=== PATIENT | male | born 1960 | race Caucasian/White ===

== ENCOUNTER → 2020-05-13 07:13 | Outpatient (BNV) | payer MEDICARE, MEDICAID, SELFPAY | PROVIDERS: Visit Provider Internal Medicine | DX: Z85.038 Personal history of other malignant neoplasm of large intestine (principal) | CPT/HCPCS: 99213; 99214 ==

== ENCOUNTER 2020-05-20 07:59 | Outpatient (REF) | payer MEDICARE, MEDICAID, SELFPAY ==
--- NOTE | 2020-05-20 08:02 | CT_ITS ---
EXAMINATION: CT CHEST, ABDOMEN AND PELVIS WITH CONTRAST CLINICAL INFORMATION: Colon cancer surveillance COMPARISON: CT scan of the abdomen and pelvis dated 07/18/2018, chest CT dated 09/01/2015. TECHNIQUE: Multidetector volumetric imaging was performed of the chest, abdomen and pelvis following the IV administration of 85 mL of Omnipaque 350 intravenous contrast. Sagittal and coronal reformatted images were obtained on the technologist's workstation. This CT examination was performed using dose optimization techniques as appropriate, variously including the following: *Automated exposure control *Adjustment of mA and/or kV according to patient size (this includes techniques or standardized protocols for targeted exams where dose is matched to indication/reason for exam; i.e. extremities or head) DLP: 898.7 mGy-cm FINDINGS: CHEST: LUNGS/PLEURA/AIRWAYS: Subtle groundglass opacities are seen in the lower lung polo bilaterally. Mild dependent atelectasis is seen in the lower lobes as well. No suspicious pulmonary nodules are seen. There are no pleural effusions. The airways are patent. MEDIASTINUM: The thyroid gland is unremarkable. The thoracic aorta is of normal caliber. No significant coronary artery calcifications. No pericardial effusion. CHEST LYMPH NODES: No lymphadenopathy. SOFT TISSUES: ABDOMEN/PELVIS: LIVER, GALLBLADDER, AND BILIARY TREE: Unremarkable. PANCREAS: Unremarkable. SPLEEN: Unremarkable. ADRENAL GLANDS: Unremarkable. KIDNEYS AND URETERS: Unremarkable. BLADDER: Unremarkable. 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 Mild diverticulosis is seen in the sigmoid colon without surrounding abnormality. LYMPH NODES: No lymphadenopathy. VASCULAR: Unremarkable. PELVIC VISCERA: Unremarkable. MUSCULOSKELETAL: Unremarkable. SOFT TISSUES: Moderate sized fat-containing umbilical hernia without significant change. Small left periumbilical hernia measuring 2.5 cm was not seen previously (image 50, series 3). CT/CT abdomen pelvis w con IMPRESSION: 1. No evidence for residual or recurrent disease. 2. Subtle groundglass opacities in the lower lobes bilaterally are likely secondary to incomplete inspiration similar to the previous study. Mild dependent atelectasis is not significantly changed. 3. Persistent moderate size fat-containing umbilical hernia. Small fat-containing left superior periumbilical hernia was not seen previously.
[2020-05-20] MEDS: iohexoL 350 MG/ML 100 ML INFUS..BTL IV (11:50)
== END 2020-05-20 08:00 | disposition home or self-care (01) ==
LOC: HO.CT 07:59
PROVIDERS: Visit Provider Internal Medicine
DX: C18.9 Malignant neoplasm of colon, unspecified (principal)
CPT/HCPCS: 71260; 74177; Q9967

== ENCOUNTER → 2020-07-02 08:47 | Outpatient (BNVA) | payer MEDICARE, MEDICAID, SELFPAY | PROVIDERS: Visit Provider Internal Medicine Gastroenterology | DX: Z13.89 Encounter for screening for other disorder (principal) | CPT/HCPCS: 99212 ==

== ENCOUNTER 2020-07-30 06:21 | Day surgery (SDC) | payer MEDICARE, MEDICAID, SELFPAY ==
[2020-07-24 15:51] VITALS: BMI 39.7
--- NOTE | 2020-07-29 12:11 | HO.ANESPROP2 ---
Documented by User: Paola Morfin 07/29/20 12:12 HPI - Anesthesia Eval Consult details Narrative: 60yo M for Colonoscopy PMFSH Active Problems Active Problems: All Active Problems (Updated 07/24/20 @ 15:51 by Roxana Caba) Colon adenocarcinoma (Chronic) Past Medical History Medical History Colon cancer Depression Elevated cholesterol Hernia History of depression Obstructive sleep apnea Family History Family History Paternal Grandmother Colon cancer Maternal Grandmother Colon cancer Mother Cancer Paternal Aunt Colon cancer Surgical History Surgical History History of carpal tunnel release of both wrists History of colon resection History of facial surgery History of gastric bypass History of incisional hernia repair History of umbilical hernia repair Hx of colonoscopy Hx of tracheostomy Social History Social History Household Members: Children Alcohol intake: never Smoking Status: Never smoker Use of substances other than those prescribed or required for medical reasons: No Advance Directives: No Advance Directives Information Provided: No Advance Directives on File: No Recently lost weight without trying: No Current occupational status: disabled Meds Allergies Allergy/AdvReac Type Severity Reaction Status Date / Time No Known Allergies Allergy Unverified 07/24/20 15:42 [No Known Allergies*] Home Medications Medication Instructions Recorded Confirmed Last Taken Type ascorbic acid (vitamin C) [Vitamin mg PO 05/13/20 07/02/20 Unknown History C] bupropion HCl 150 mg PO DAILY 05/13/20 07/30/20 07/30/20 05:00 History 75 mg Exam Exam Date and Time: July 29, 2020 1211 Height,Weight and Vital Signs: Height 6 ft Weight 132.903 kg Pertinent Lab Results Pertinent Lab Results: Laboratory Tests 05/13/20 07:37 Sodium 138 Potassium 4.5 Chloride 106 Carbon Dioxide 27 BUN 18 H Creatinine 1.05 Laboratory Tests 05/13/20 07:37 WBC 4.6 L Hgb 15.0 Hct 45.7 Plt Count 251 Assessment and Plan Assessment Anesthesia Assessment: Chart Reviewed Documented by User: Ruben Benosn 07/30/20 07:20 PMFSH Past Medical History Medical History Colon cancer Depression Elevated cholesterol Hernia History of depression Obstructive sleep apnea Family History Family History Paternal Grandmother Colon cancer Maternal Grandmother Colon cancer Mother Cancer Paternal Aunt Colon cancer Surgical History Surgical History History of carpal tunnel release of both wrists History of colon resection History of facial surgery History of gastric bypass History of incisional hernia repair History of umbilical hernia repair Hx of colonoscopy Hx of tracheostomy Social History Social History Household Members: Children Alcohol intake: never Smoking Status: Never smoker Use of substances other than those prescribed or required for medical reasons: No Advance Directives: No Advance Directives Information Provided: No Advance Directives on File: No Recently lost weight without trying: No Current occupational status: disabled Meds Allergies Allergy/AdvReac Type Severity Reaction Status Date / Time No Known Allergies Allergy Unverified 07/24/20 15:42 [No Known Allergies*] Home Medications Medication Instructions Recorded Confirmed Last Taken Type ascorbic acid (vitamin C) [Vitamin mg PO 05/13/20 07/02/20 Unknown History C] bupropion HCl 150 mg PO DAILY 05/13/20 07/30/20 07/30/20 05:00 History 75 mg Exam Airway Mallampati Class: III TM Dist: >3cm Neck ROM: Full
[2020-07-30 06:47] VITALS: BP 116/67; PULSE 63; RESP 16; TEMP 36.1; O2SAT 96
[2020-07-30] MEDS: Lactated Ringers 1,000 ML 100 ML IVCONT (06:49)
--- NOTE | 2020-07-30 07:10 | W.PM.OPN ---
Operative Note Operative Note Date of Service: 07/30/20 Narrative: Pre-op diagnosis: Colon cancer screening, personal history of colon cancer Post-op diagnosis: other (Diverticulosis, hemorrhoids) Procedure: COLONOSCOPY TILL CECUM Consent: Indications for the procedure and potential complications of bleeding, perforation, reaction to medications and missed diagnosis were discussed with the patient with the help of a sheetfed press operator and informed consent was obtained. Instrument: Olympus PCF H 190 L variable stiffness pediatric colonoscope Monitoring: Vital signs and clinical assessment, intermittent blood pressure monitoring, continuous EKG monitoring, Pulse oximetry and Carbon Dioxide monitoring were done throughout the procedure. Colon withdrawl time was 25 minutes. Procedure: The patient was placed in the left lateral decubitis position and pre-procedure medications were administered. After a digital rectal examination of the ano-rectum, the video colonoscope was inserted into the rectum and advanced through the colon to the cecum. The colonoscope was slowly withdrawn in a retrograde panoramic fashion and the colon mucosa was carefully examined including a retroflexed view of the rectum. Findings and interventions are described below. Procedure Difficulty: Without difficulty Findings: Terminal Ileum: Not evaluated Cecum: Normal Ascending Colon: Normal Transverse Colon: Normal end to end anastomosis at 80 cms. Descending Colon: Normal Sigmoid Colon: Moderate diverticulosis Rectum: Normal Ano-rectum: Moderate internal hemorrhoids and hypertrophied anal papilla Colon preparation: Good after copious irrigation and fair in the right colon Impression and Post Procedure Diagnosis: Colonoscopy Findings: No polyps were detected Moderate diverticulosis seen in the []colon Moderate hemorrhoids on retroflexed exam. Prep was fair in some areas of the colon. Plan: Await pathology results Patient has an appointment on 08/13/20 in the [facility] with Emily White M.D.. Repeat Colonoscopy in 3 years due to fair prep. Above findings were reviewed with the patient and diverticulosis and diverticulosis diet handouts were given in the discharge area Surgeon: Emily White MD Anesthesia: MAC (Emiliano Cadena CRNA) Estimated blood loss (mL): 0 Pathology: none sent Condition: stable Disposition: PACU
--- NOTE | 2020-07-30 07:10 | MHC.SHP ---
Pre-Procedural Eval Section A The patient is an INPATIENT: No The History & Physical has been completed within 30 days and I have reviewed it.: No Section B Chief Complaint: Colon Cancer Details of Present Illness: Colon cancer screening, history of colon cancer Relevant Family History (Specify if Yes): Yes Relevant Social History: None Present Medications: see Short Stay Collaborative assessment Medical History: Significant History (Colon cancer Hernia History of depression Obstructive sleep apnea) History of Previous Operations: Relevant previous surgery/procedure and date(s) (History of gastric bypass, colon resection.) Allergies: Allergies Allergy/AdvReac Type Severity Reaction Status Date / Time No Known Allergies Allergy Unverified 07/24/20 15:42 [No Known Allergies*] Review of Systems Sugical H&P ROS: Negative: Constitution, Cardiovascular, Respiratory and Gastrointestinal Exam Surgical H&P Exam: Normal: Heart, Normal: Lungs, Normal: Extremities and Normal: Abdomen Plan Diagnosis/Plan: Unchanged I have reviewed the history and physical and performed a pertinent physical examination on my patient. No changes have occurred unless specified.
[2020-07-30 08:10] VITALS: BP 93/49; PULSE 96; RESP 16; TEMP 36.1; O2SAT 98
[2020-07-30 08:18] VITALS: PULSE 88; RESP 18; O2SAT 99
[2020-07-30 08:25] VITALS: BP 92/62; PULSE 83; RESP 18; O2SAT 98
[2020-07-30 08:39] VITALS: BP 102/63; PULSE 72; RESP 18; O2SAT 99
== END 2020-07-30 09:07 | disposition home or self-care (01) ==
PROVIDERS: Visit Provider Internal Medicine Gastroenterology
PROC: 0DJD8ZZ Inspection of Lower Intestinal Tract, Via Natural or Artificial Opening Endoscopic (ICD-10-PCS; CPT 45378; principal; 2020-07-30 07:30)
DX: Z12.11 Encounter for screening for malignant neoplasm of colon (principal); Z85.038 Personal history of other malignant neoplasm of large intestine; K57.30 Diverticulosis of large intestine without perforation or abscess without bleeding; K64.8 Other hemorrhoids; K62.89 Other specified diseases of anus and rectum; Z98.0 Intestinal bypass and anastomosis status; F32.9 Major depressive disorder, single episode, unspecified; G47.33 Obstructive sleep apnea (adult) (pediatric); K42.9 Umbilical hernia without obstruction or gangrene; Z98.84 Bariatric surgery status; Z79.899 Other long term (current) drug therapy
CPT/HCPCS: G0105

== ENCOUNTER → 2020-08-13 09:22 | Outpatient (BNVA) | payer MEDICARE, MEDICAID, SELFPAY | PROVIDERS: Visit Provider Internal Medicine Gastroenterology | DX: Z13.89 Encounter for screening for other disorder (principal) | CPT/HCPCS: Q3014 ==

== ENCOUNTER 2024-07-01 10:43 | Day surgery (SDC) | payer MEDICARE, MEDICAID, SELFPAY ==
--- NOTE | 2024-06-28 12:09 | HO.ANESPROP2 ---
Documented by User: Paola Mrofin NP 06/28/24 12:10 HPI - Anesthesia Eval Consult details Narrative: 64yo M for Colonoscopy PMFSH Active Problems Active Problems: All Active Problems Diverticulosis of colon (Acute) Colon adenocarcinoma (Chronic) Past Medical History Medical History (Updated 06/27/24 @ 13:45 by Marisol Soto, JOVI) Depression Elevated cholesterol History of depression Colon cancer Hernia Obstructive sleep apnea Family History Family History Paternal Grandmother Colon cancer Maternal Grandmother Colon cancer Mother Cancer Paternal Aunt Colon cancer Surgical History Surgical History Hx of endoscopy History of facial surgery History of carpal tunnel release of both wrists History of incisional hernia repair History of umbilical hernia repair Hx of colonoscopy History of colon resection Hx of tracheostomy History of gastric bypass Social History Social History (Updated 11/10/21 @ 08:12 by Donna Oreilly) Household Members: Children Housing: House Are you a primary residential caregiver to a significant other at home: No Do you presently have visiting nurse or other home services: No Alcohol intake: never Patient Tobacco Use Status: Never used Tobacco Use of substances other than those prescribed or required for medical reasons: No Are you DNR?: No Advance Directives: No Advance Directives Information Provided: Yes service: No Current occupational status: disabled Meds Allergies Allergy/AdvReac Type Severity Reaction Status Date / Time No Known Allergies Allergy Verified 06/23/23 10:20 [No Known Allergies*] Home Medications ?Medication ?Instructions ?Recorded ?Confirmed ?Last Taken ?Type ascorbic acid (vitamin C) 25 mg 25 mg PO DAILY 05/13/20 06/23/23 Unknown History tablet bupropion HCl 75 mg tablet 150 mg PO DAILY 05/13/20 06/27/24 07/30/20 05:00 History 75 mg cholecalciferol (vitamin D3) 25 25 mcg PO DAILY 06/23/23 06/23/23 Unknown History mcg (1,000 unit) capsule (Vitamin D3) multivitamin 1 tab PO DAILY 06/23/23 06/23/23 Unknown History phytonadione (vitamin K1) 1 mg/0.5 1 mg PO DAILY 06/23/23 06/23/23 Unknown History mL injection solution (vitamin K) Exam Height,Weight and Vital Signs: Height 6 ft Assessment and Plan Assessment Anesthesia Assessment: Chart Reviewed Documented by User: Ruben Benson MD 07/01/24 13:08 [facility] Past Medical History Medical History (Updated 06/27/24 @ 13:45 by Marisol Soto, JOVI) Depression Elevated cholesterol History of depression Colon cancer Hernia Obstructive sleep apnea Family History Family History Paternal Grandmother Colon cancer Maternal Grandmother Colon cancer Mother Cancer Paternal Aunt Colon cancer Family history of problems with anesthesia: No Surgical History Surgical History Hx of endoscopy History of facial surgery History of carpal tunnel release of both wrists History of incisional hernia repair History of umbilical hernia repair Hx of colonoscopy History of colon resection Hx of tracheostomy History of gastric bypass History of Problems with Anesthesia: No Social History Social History (Updated 11/10/21 @ 08:12 by Donna Oreilly) Household Members: Children Housing: House Are you a primary residential caregiver to a significant other at home: No Do you presently have visiting nurse or other home services: No Alcohol intake: never Patient Tobacco Use Status: Never used Tobacco Use of substances other than those prescribed or required for medical reasons: No Are you DNR?: No Advance Directives: No Advance Directives Information Provided: Yes service: No Current occupational status: disabled Meds Allergies Allergy/AdvReac Type Severity Reaction Status Date / Time No Known Allergies Allergy Verified 06/23/23 10:20 [No Known Allergies*] Home Medications ?Medication ?Instructions ?Recorded ?Confirmed ?Last Taken ?Type ascorbic acid (vitamin C) 25 mg 25 mg PO DAILY 05/13/20 06/23/23 Unknown History tablet bupropion HCl 75 mg tablet 150 mg PO DAILY 05/13/20 06/27/24 07/30/20 05:00 History 75 mg cholecalciferol (vitamin D3) 25 25 mcg PO DAILY 06/23/23 06/23/23 Unknown History mcg (1,000 unit) capsule (Vitamin D3) multivitamin 1 tab PO DAILY 06/23/23 06/23/23 Unknown History phytonadione (vitamin K1) 1 mg/0.5 1 mg PO DAILY 06/23/23 06/23/23 Unknown History mL injection solution (vitamin K) Exam Airway Mallampati Class: IV TM Dist: >3cm Neck ROM: Full Loose/Missing/Broken Teeth: Yes and Upper Assessment and Plan Assessment Anesthesia Assessment: Anesthesia Plan Discussed Final Anesthetic Review Family History of Problems with Anesthesia: No History of Problems with Anesthesia: No NPO: Yes ASA Class: III Final Preanesthetic Review: No Changes in Pt Med Stat, Meds/Allgs Chart Reviewed, Consent Obtained/Reviewed and Anes Risks/Benef Reviewed Patient Risk: Intermediate Procedure Risk: Low Anesthetic Plan Anesthetic Plan: TIVA Disposition: Standard PACU
--- NOTE | 2024-07-01 | ECG_ITS ---
Test Reason : CHEST PAIN Blood Pressure : */* mmHG Vent. Rate : 75 BPM Atrial Rate : 75 BPM P-R Int : 168 ms QRS Dur : 98 ms QT Int : 378 ms P-R-T Axes : 41 14 30 degrees QTcB Int : 422 ms Normal sinus rhythm Low voltage QRS Borderline ECG When compared with ECG of 28-Aug-2017 13:06, No significant change was found Referred By: Lula Poon Electronically Signed By: LICHA MON MD
[2024-07-01 11:36] VITALS: BP 127/83; PULSE 88; RESP 18; TEMP 37.9; O2SAT 97
--- OUTSIDE RECORDS SUMMARY | 2024-07-01 11:43 | XMS_ITS | Clinical Summary ---
Author Organization [facility] [employer] & [facility] lin Address [address] [place] [address] Care Team Providers Care Document Image Technician Name Role Phone No, Pcp FARE REGISTER REPAIRER Primary Care Provider Unavailabl e Social History Tobacco Use Types Packs/Day Years Used Date Smoking Tobacco: Never Assessed Sex and Gender Information Value Date Recorded Sex Assigned at Not on file Legal Sex Male 9:58 AM EDT Gender Identity Not on file Sexual Orientation Not on file Plan of Treatment Health Maintenance Due Date Last Done Comments Colorectal Cancer: COLONOSCO PY Screening every 10 yrs (or Modifier) 1961 Depression: Screening Annual ly using PHQ-2/9 in Adults 18 yrs or above (or HM Modifier)([facility]) 1979 Hepatitis C Virus Infection in Adolescents and Adults: Screening (or Modifier) ([facility]) 1979 SDMT Screening Reminder: Rama santillan for all adults ([facility]) 1979 Tobacco Smoking Cessation: i n Adults excluding Women: Behavioral and Pharmacotherapy Interventions ([facility]) 1979 DTaP/Tdap/Td Vaccines ([facility]) (1 - Tdap) 02/06/1980 Lipid Screening: Every 5 yrs for Men aged 35+ (or HM Modifier) ([facility]) 1997 Colorectal Cancer Screening 45 -75 Yrs (or HM Modifier) 2006 Colorectal Cancer: FLEXIBLE SIGMOIDOSCOPY Screening every 5 yrs 2006 Colorectal Cancer: Fecal Immunochemical Test (FIT) Annually [facility] 2006 Colorectal Cancer: High-sens itivity gFOBT Screening Annually [facility] 2006 Colorectal Cancer: Stool Col oguard Screening every 3 yrs 2006 Colorectal Cancer:CT Colonog pérez Screening every 5 yrs 2006 Zoster/Shingles Vaccine Seri es Screening: Adults aged 18+ yrs (or HM Modifiers)([facility]) (1 of 2) 2011 Flu Vaccination: Yearly for ages 18mos through 64 years (or Modifier)([facility]) 12/21/2023 COVID-19 Vaccine Screening: Initial Series and Booster Status ([facility]) ( - 2023- season) 2024 RSV Vaccines (1 - 1-dose 75+ series) 02/06/2036 Pneumococcal Vaccination Scr eening: Pts 0-19 & 19-64 yrs of age ([facility]) Aged Out No longer eligible based on patient's age to complete this topic Medical Devices Not on file Insurance MEDICARE Care Teams Document Image Technician Relationship Specialty Start Date End Date No, Pcp, FARE REGISTER REPAIRER N/A Do not use PCP - General Family Medicine 01/14/20
--- OUTSIDE RECORDS SUMMARY | 2024-07-01 11:43 | XMS_ITS | Referral Summary ---
Author Organization [facility] Address [address] [place] [address] Care Team Providers Care Drainage Engineer Name Role Phone Solis Dempsey DO Primary Care Provider [phone] Encounters Date Type Department Care Team Description 05/29/2024 Refill [facility] [address] [place] [id number] Vp Treasurer: Solis An DO Morbid obesity from Last 3 Months Allergies No known active allergies Medications cholecalciferol (VITAMIN D3) 2,000 unit capsuleIndications: Vitamin D deficiency Take 1 capsule (2,000 Units total) by mouth daily. 30 capsule 11 1 Active atorvastatin (LIPITOR) 10 mg tabletIndications:M ixed hyperlipidemia TOME JANNIE TABLETA TODOS [place] RICHTER 90 tablet 3 2 Active cholecalciferol (VITAMIN D3) 1,250 mcg (50,000 unit) capsule Take 1 capsule (50,000 Units total) by mouth once a week. 12 capsule 2 Active Aqua-K Concentrate 200 mcg-2 mg /0.2 mL dropsIndications:Vi tamin K deficiency TOME DOS TABLETAS POR VIA ORAL TODOS [place] RICHTER 60 mL 2 Active polyethylene glycol 3350 (Miralax) powderIndications:C onstipation, unspecified constipation type Take 17 g by mouth daily. Mix powder in 4 to 8 oz of water, juice, coffee, or tea. Take 17 g daily until first bowel movement, then titrate down to achieve one soft bowel movement daily 510 g 1 2 Active ferrous sulfate 325 mg (65 mg iron) tabletIndications:L ow ferritin Take 1 tablet (325 mg total) by mouth daily with breakfast. 30 tablet 2 2 Active buPROPion SR (WELLBUTRIN SR) 150 mg tabletIndications:M orbid (severe) obesity due to excess calories (HCC) Jannie tableta 2 veces al tere. 1 tablet two times daily. 180 tablet 3 5 Active Active Problems Problem Noted Date Diagnosed Date Medicare annual wellness visit, initial 04/29/20 23 Assessment & Plan (04/29/2023 1:47 AM EST): Healthcare maintenance. -Cervical cancer screening: N/A -Breast cancer screening: N/A -Colorectal cancer screening: States he had outside colonoscopy performed, unsure what year. No records have been scanned in. -Lung cancer screening: N/A -DEXA scan: n/a -Dental: Currently seeking a dentist that takes his insurance -Immunizations : Needs RSV at [facility] -Labs: Life time HIV screen needed. -STD/HIV testing: Up to date -Advanced directives/HCP: HCP received Low ferritin 02/25/2022 Assessment & Plan (02/25/2022 1:33 PM EDT): We discussed taking low-dose iron on a weekly basis to increase his ferritin levels. We discussed taking iron 325 mg twice weekly along with MiraLAX to prevent constipation. Previously patient had stopped taking iron due to constipation symptoms. Discussed if we are proactive and he takes iron twice a week with MiraLAX we can prevent some of his constipation issues. We also addressed to make sure he is adequately hydrated to help prevent any future constipation issues. -Patient's insurance does not cover MiraLAX. Patient will have to chicken picker MiraLAX [id number]. -Iron twice a week prescribed Deficiency of multiple nutrient elements 022 Assessment & Plan (12/10/2021 6:28 PM EDT): Upon review of patient's labs during today's visit. Patient was low and ferritin, vitamin D, vitamin K. Patient is also due for folate, B12, albumin, prealbumin, PTH intact and calcium and zinc secondary to Milan-en-Y gastric bypass. -Follow-up on pending labs -Prescribe vitamin K supplementation -Continue vitamin D supplementation -Continue daily monthly vitamin lifelong -Continue to monitor ferritin and anemia labs. Patient cannot tolerate oral iron supplementation. Patient likely candidate for iron infusions at a later date. Intestinal malabsorption 12/10/2021 Assessment & Plan (08/02/2023 9:50 AM EDT): History of gastric bypass, he is still taking his vitamin K supplement, iron and multivitamin daily. No fatigue, vision issues, skin issues. -continue to monitor Constipation 12/10/2021 Assessment & Plan (12/10/2021 6:26 PM EDT): Mark has a history of constipation. He is amenable to increasing his water intake as well as taking a fiber gummy every day to see if his constipation will improve. -Prescribed fiber gummy -Continue to monitor Vitamin K deficiency 12/10/2021 Assessment & Plan (02/25/2022 1:34 PM EDT): [facility] multiple vitamin K prescriptions I sent down. Patient did not reach back out and let us know that he was not able to get vitamin K prescription. He was able to find 1 that had a minimal amount of vitamin K and it was also mixed with vitamin D3. Upon speaking with attending Dr. Bryant we found [facility] which gives 100 mcg vitamin K for daily maintenance. Jaki called the patient and instructed him to buy the vitamin K online via [facility] website. We will follow-up and retest his vitamin K levels at the next visit in 4 to 6 weeks. -Continue taking 100 mcg of vitamin K daily -Repeat vitamin K level 4 to 6 weeks Low serum vitamin D 10/04/2020 Folliculitis barbae 10/04/2020 Umbilical hernia 08/09/2018 Assessment & Plan (08/09/2018 10:27 AM EDT): Patient with a non-complicated umbilical hernia scheduled for surgery on 08/31/2018 at [facility]. Prediabetes 04/09/2018 ED (erectile dysfunction) 12/06/2017 Assessment & Plan (12/06/2017 8:54 AM EDT): Patient reports 2-3 episodes of trouble with erection during [place]. Reports morning erections and denies any new medications. Offered trial of sildenafil but patient not interested at this time. -Recommend weight loss and improve diet. Malignant neoplasm of transverse colon 8 Assessment & Plan (08/02/2023 9:48 AM EDT): He would like referral for colonoscopy as he is due for his last one to be cleared by oncology for routine follow ups. -referral to gastroenterology placed. Family history of heart disease 06/26/2016 Overview (09/18/2017): The 10-year ASCVD risk score (Gurinder LAUGHLIN Jr, et al., 2013) is: 5.3% Values used to calculate the score: Age: 57 years Sex: Male Is Non- : No Diabetic: No Tobacco smoker: No Systolic Blood Pressure: 106 mmHg Is BP treated: No HDL Cholesterol: 49 mg/dL Total Cholesterol: 231 mg/dL Assessment & Plan (09/18/2017 1:43 PM EDT): -Remains stable on current medication regimen -Consider repeat Lipid Panel -Continue Atorvastatin 10 mg at bedtime -Continue to monitor Mixed hyperlipidemia 06/26/2016 Depression, unspecified depression type 06/24/19 17 Assessment & Plan (12/04/2017 3:48 PM EDT): Stable on Wellbutrin that was initially started by his psychiatrist in [place] years ago. PHQ-2 was negative in office today. -Recommend consultation with Dr. Luke to review medication. 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 No operative note on file but likely secondary to known complication of IV nerve blockade, commonly used for this procedure. -Differential includes: peripheral nerve damage and CRPS. No signs of compartment syndrome. -Patient denies any signfiicant functional disability nor need for any pain medication at this time. Carpal tunnel syndrome, unspecified laterality 0 06/22/2016 Morbid obesity 05/29/2009 Overview (01/01/2018): s/p Gastric Bypass in 2006; Lost > 200 lb. Regained about 100 lb due to family stress (brother drowned). Reinitiated physician supervised weight loss on 01/01/18 at 303 lb, BMI 42. Assessment & Plan (08/02/2023 9:48 AM EDT): Sister is ill and he had not been able to start a food log. He has been trying to get more protein and water in his daily routine. He is planning on starting the food log now to keep track. He had gastric bypass in 2005 and lost over 200 lb. Patient has not lost any weight since previous visit. -Continue to assist in his weight loss journey -follow up 4 weeks. Assessment & Plan (06/02/2023 11:06 PM EST): Gastric bypass in 2005. -Discussed plate method -Plan to aim for 60-100g protein per day -If having carbs do so at breakfast or lunch. -64 ounce of water/day -Food log until next visit Assessment & Plan (02/25/2022 1:33 PM EDT): Patient has been gaining weight recently. We discussed the best way to stop unintentional weight gain is to utilize all available resources which include CBT as well as any medicines to assist his previously gastric bypass surgery and his goal of weight loss. Patient is amenable to meeting with therapy to assist his weight loss goals. Unfortunately he is not a diabetic and many medications are unavailable to him to assist his weight loss. -We will see if we can get a PA for Contrave -Establish CBT with one of the therapists for weight loss Assessment & Plan (01/29/2018 1:46 PM EDT): Doing well through changing diet, sleeping more, increased bupropion. Continue with current plan, continue to anticipate 1-2 lb losses a week. Return in 1 month to recheck. Assessment & Plan (01/01/2018 2:40 PM EDT): Reviewed history, current dietary habits. Discussed ways to decrease carbs (see patient instructions). Concerned about him sleeping only 4 hours a night; advised he needs to decrease his caffeine and try to sleep more. Will change bupropion from 150 SL to 150 bid SR. Return in 2-3 weeks to recheck. Expect 1-2 lb loss a week. Assessment & Plan (12/04/2017 3:50 PM EDT): Status post gastric bypass surgery in 2015. BMI 42.84 today. Patient had gained 10 pounds since last visit in September 2017. Patient reports diet consistent of mostly carbs. He is walking about 1 mile 4 times a week. He is interested in seeing a battery hand and attending our weight loss program with Dr. Smith. Lipid panel within normal limits, CBC and BMP within normal limits on September 2017. -Discussed diet and exercise. Discussed the concept of calorie deficit in order to lose weight. - Flight Deck Officer referral and referral to Dr. Smith's weight loss clinic. Obstructive sleep apnea 04/22/2009 Assessment & Plan (08/09/2018 10:27 AM EDT): Hx of ARIANNA did not use his BiPAP machine for quite a period time, came in today complaining of increasing weight, worsening symptoms of snoring and difficulty sleeping. Referral to pulmonology for consult Continue Wellbutrin for weight loss Continue follow-up with Dr. Smith for weight management History of Milan-en-Y gastric bypass 08/19/2000 Assessment & Plan (12/10/2021 6:25 PM EDT): Gastric bypass patient in 2006. Was on vitamins after the surgery and stopped all vitamins 6 years ago except for the vitamin B1. Previous lab results reveal he is vitamin D deficient, low potassium and low iron. Additional labs needed- albumin, prealbumin, PTH intact and calcium, zinc, B12 and folate. Discussed that he will need to be on lifelong vitamin supplementation due to his history of gastric bypass. Patient acknowledged and stated that he discontinued his previous vitamins due to severe constipation that he experienced. You shared decision making and reviewing his labs decided to proceed with daily vitamin supplementation except with iron. We will continue to monitor his iron levels-only his ferritin is decreased. -Continue lifelong vitamins -Continue weight loss journey Resolved Problems Problem Noted Date Diagnosed Date Resolved Date Encounter for hepatitis C sc reening test for low risk patient 10/04/2020 04/29/2023 Bilateral impacted cerumen 08/09/2018 1 06/30/2022 Assessment & Plan (08/23/2018 10:41 AM EDT): Ear canal much clean after the use of debrox, small amount of wax left that was cleaned out without the necessity to do a formal lavage. Patient advised not to use Q-tips on his ear, use Debrox as needed and follow-up as needed Assessment & Plan (08/09/2018 10:24 AM EDT): Bilateral impacted cerumen, was a finding during physical exam, patient reported no symptoms, no complaints. Debrox to be used for 2 weeks RTC for ear lavage Borderline hyperglycemia 01/01/201801/2023 History of incisional hernia repair 09/18/2017 09/18/2017 Pain of left forearm 07/05/2016 018 Overview (02/11/2017): Active; Patient presents with new concern regarding L forearm neuropathic pain that initially presented after CTS release procedure. Pain appears to be localized to C7 dermatome. 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 -Patient denies any functional disability at this time with only mild discomfort experienced. -Differential Diagnosis includes: Peripheral Neuropathy of radial nerve, Complications 2/2 CTS release surgery, CRPS Influenza vaccine administered 06/22/2016 10/17/2017 Migraine headache 06/22/2016 08/02/2023 Chest pain 07/15/2011 10/17/2017 Syncope 07/15/2011 10/17/2017 Immunizations Name Administration Dates Next Due Covid-19, Pfizer, mRNA, Garden valent, PF, 10 Mcg/0.2 mL dose, Trenton-sucrose (for ages 5-11 years old) 04/25/2023 Covid-19, Pfizer, mRNA, Garden valent, PF, 30 mcg/0.3 mL dose, trenton-sucrose (COMIRNATY)(for ages 12 and older) 04/25/2023 INFLUENZA, SPLIT VIRUS, TRIVALENT, PF 06/22/2016 Influenza, Injectable, Quadr ivalent, Preservative Free 04/25/2023,05/03/2019,01/10/2017 Influenza, Trivalent, MDV, Injectable 01/22/2014 ,01/26/2013 Pneumococcal conjugate PCV20 ,polysaccharide [id number] conjugate, adjuvant, PF (Prevnar 20) 07/31/2023 Tetanus Toxoid, Reduced Diph theria Toxoid, and Acellular Pertussis Vaccine, Adsorbed 10/21/2021 Zoster Vaccine Recombinant 01/24/2022,11/01/2021 Social History Tobacco Use Types Packs/Day Years Used Date Smoking Tobacco: Never Smokeless Tobacco: Never Comments:: Alcohol Use Standard Drinks/Week Comments No 0 (1 standard drink = 0.6 oz pur e alcohol) Transportation Answer Date Recorded Please chaz the areas for ich the patient would like information or assistance: None Apply 04/25/2023 Lack of Transportation (Medical) Not on file 04/25/2023 Housing Stability Answer Date Recorded Please chaz the areas for ich the patient would like information or assistance: None Apply 04/25/2023 Unable to Pay for Housing in the Last Year Not o n file 04/25/2023 Last EPDS Total Score Not on file 04/25/2023 Unstable Housing in the Last Year Not on file 04/25/2023 Sex and Gender Information Value Date Recorded Sex Assigned at Male 03/30/2023 11:12 AM EST Legal Sex Male 1:35 AM EDT Gender Identity Not on file Sexual Orientation Not on file Last Filed Vital Signs Vital Sign Reading Time Taken Comments Blood Pressure 126/74 07/31/2023 3:03 PM EDT Pulse 66 07/31/2023 3:03 PM EDT Temperature 36.2 ??C (97.2 ??F) 07/31/2023 3:03 PM ED T Respiratory Rate 16 01/29/2018 1:20 PM EDT Oxygen Saturation 98% 07/31/2023 3:03 PM EDT Inhaled Oxygen Concentration - - Weight 135 kg (297 lb 11.2 oz) 07/31/2023 3:03 P M EDT Height 175.3 cm (5' 9 ) 07/31/2023 3:03 PM EDT Body Mass Index 43.96 07/31/2023 3:03 PM EDT Plan of Treatment Upcoming Encounters Date Type Department Care Team (Late st Contact Info) Description 07/25/2024 4:30 PM EST Follow-Up [facility] [address] [place] [phone] Vp Treasurer: Solis An, [address] [place] [id number] Procedures * Due to [place] ChirpVision law, this organization might not be sharing negative HIV tests. Procedure Name Priority Date/Time Associated Diagnosis Comments HEPATITIS C ANTIBODY W/REFLEX TO HCV RNA, QUANTITATIVE PCR Routine 10/02/2020 9:31 AM EDT Encounter for hepatitis C screening test for low risk patient from Last 3 Months or Most Recently Relevant to Health Maintenance Results * Due to [place] ChirpVision law, this organization might not be sharing negative HIV tests. * Hepatitis C Antibody w/Reflex to HCV RNA, Quantitative PCR (10/02/2020 9:31 AM EDT) Hepatitis C Antibody Interpretation Nonreactive Nonreactive [facility] 11:14 AM EDT [facility] Blood Structure of peripheral vein / Unknown Venipuncture / Unknown 10/02/2020 9:31 AM EDT 10/02/2020 9:31 AM EDT us Shasha Smith MD LAB BLOOD ORDERABLES Final Result [facility] [address] [place] [address], [place] from Last 3 Months or Most Recently Relevant to Health Maintenance Insurance MEDICARE [facility] [place] [id number] MEDICARE [facility] [place] [place] [id number] Advance Directives Documents on File Type Date Recorded Patient Glove Finisher Expl [facility] Health Care Proxy 02/25/2022 1:20 PM 02-24 Care Teams Drainage Engineer Relationship Specialty Start Date End Date Solis Dempsey DO [address] [place] [id number] PCP - General 11/20/23
--- OUTSIDE RECORDS SUMMARY | 2024-07-01 11:43 | XMS_ITS | Clinical Summary ---
Author Organization [facility] Address [address] [place] [address] Care Team Providers Care Cardiology Rn Name Role Phone Solis DempseyNadia ASHRAF Primary Care Provider [phone] Allergies No known active allergies Medications cholecalciferol [...] his insurance -Immunizations : Needs RSV at [facility] -Labs: Life time HIV screen needed. -STD/HIV [...] not cover MiraLAX. Patient will have to pickle pumper MiraLAX [id number]. -Iron twice a week prescribed Deficiency of [...] speaking with attending Dr. Bryant we found [facility] pharmacy which gives 100 mcg vitamin K for daily maintenance. Jaki called the patient and instructed him to buy the vitamin K online via [facility] website. We will follow-up and retest his [...] hernia scheduled for surgery on 08/31/2018 at [facility]. Prediabetes 04/09/2018 ED (erectile dysfunction) 12/06/2017 Assessment & Plan (12/06/2017 8:54 AM EDT): Patient reports 2-3 episodes of trouble with erection during [place]. Reports morning erections and denies any new [...] Overview (09/18/2017): The 10-year ASCVD risk score (Gurindercori LAUGHLIN Jr, et al., 2013) is: 5.3% [...] was initially started by his psychiatrist in [place] years ago. PHQ-2 was negative in office [...] 05/29/2009 Overview (01/01/2018): s/p Gastric Bypass in 2005; Lost > 200 lb. Regained about 100 [...] EDT): Status post gastric bypass surgery in 2016. BMI 42.84 today. Patient had gained 10 pounds since last visit in September 2017. Patient reports diet consistent of mostly carbs. He is walking about 1 mile 4 times a week. He is interested in seeing a orthodontic technician assistant and attending our weight loss program with Dr. Smith. Lipid panel within normal limits, CBC and BMP within normal limits on September 2017. -Discussed diet and exercise. Discussed the concept of calorie deficit in order to lose weight. - Trigonometry Teacher referral and referral to Dr. Smith's weight [...] 6:25 PM EDT): Gastric bypass patient in 2005. Was on vitamins after the surgery and [...] Chest pain 07/15/2011 10/17/2017 Syncope 07/15/2011 10/17/2017 Encounters Date Type Department Care Team Description 05/29/[address] [id number] Railcar Mechanic: Solis An, DO Morbid obesity from Last 3 Months Immunizations Name Administration Dates Next Due Covid-19, Pfizer, mRNA, [place] valent, PF, 10 Mcg/0.2 mL dose, Trenton-sucrose (for ages 5-11 years old) 04/25/2023 Covid-19, Pfizer, mRNA, [place]andot valent, PF, 30 mcg/0.3 mL dose, trenton-sucrose (COMIRNATY)(for ages 12 and older) 04/25/2023 INFLUENZA, SPLIT VIRUS, TRIVALENT, PF 06/22/2016 Influenza, Injectable, Quadr ivalent, Preservative Free 04/25/2023,05/03/2019,01/10/2017 Influenza, Trivalent, MDV, Injectable 01/22/2014 ,01/26/2013 Pneumococcal conjugate PCV20 ,polysaccharide [id number] conjugate, adjuvant, PF (Prevnar 20) 07/31/2023 Tetanus Toxoid, Reduced Diph theria Toxoid, and Acellular Pertussis Vaccine, Adsorbed 10/21/2021 Zoster Vaccine Recombinant 01/24/2022,11/01/2021 Family History Medical History Relation Name Comments Diabetes Father Myocardial Infarction Mother Other Mother Family History of migraine headaches Relation Name Status Comments Father Mother Social History Tobacco Use Types Packs/Day Years [...] Info) Description 07/25/2024 4:30 PM EST Follow-Up [facility] [address] [place] [address] Railcar Mechanic: Solis An, [address] [place] [id number] Health Maintenance Due Date Last Done Comments HIV Screening 1960 RSV Vaccine (60+ years old and patients) (1 - Risk 60-74 years 1-dose series) 2021 Influenza Vaccine (#1) 2024 , 05/03/2019, 01/10/2017, Additional history exists Alcohol/Substance Use Screening 05/22/2024 Depression Evaluation 05/22/2024 Social Drivers of Health Annual Screening 05/22/2024 DTaP,Tdap,and Td Vaccines (2 - Td or Tdap) 10/22/2031 10/21/2021 Tobacco Screening 05/22/2042 07/31/2023 Hepatitis C Screening Completed 10/02/2020 Statin Therapy Completed 08/06/2021 Zoster Vaccines Completed 01/24/2022, 11/01/2021 COVID-19 Vaccine Discontinued 04/25/2023, 09/2022, 04/25/2023, Additional history exists Pneumococcal Vaccine: Pediatric (0-5 Years) and At-Risk Patients (6-64 Years) Completed 07/31/2023 Hepatitis B Vaccines Aged Out No long er eligible based on patient's age to complete this topic Procedures * Due to [place] state law, this organization might not be sharing negative HIV tests. Procedure Name Priority Date/Time Associated Diagnosis Comments HEPATITIS C ANTIBODY W/REFLEX TO HCV RNA, QUANTITATIVE PCR Routine 10/02/2020 9:31 AM EDT Encounter for hepatitis C screening test for low risk patient from Last 3 Months or Most Recently Relevant to Health Maintenance Results * Due to [place] state law, this organization might not be sharing negative HIV tests. * Hepatitis C Antibody w/Reflex to HCV RNA, Quantitative PCR (10/02/2020 9:31 AM EDT) Hepatitis C Antibody Interpretation Nonreactive Nonreactive [facility] 11:14 AM EDT [facility] Blood Structure of peripheral vein / Unknown Venipuncture / Unknown 10/02/2020 9:31 AM EDT 10/02/2020 9:31 AM EDT us Shasha Smith MD LAB BLOOD ORDERABLES Final Result Performing Organization Address City/State/[facility] Co de Phone Number [facility] [address] [place] [address], [place] from Last 3 Months or Most Recently Relevant to Health Maintenance Insurance MEDICARE [facility] MEDICARE [facility] Advance Directives Documents on File Type Date Recorded Patient Security Guards Dispatcher Expl [facility] Health Care Proxy 02/25/2022 1:20 PM 02-24 Care Teams Cardiology Rn Relationship Specialty Start Date End Date Solis Dempsey DO [address] [place] [address] [place] [id number] PCP - General 11/20/23
[2024-07-01 11:45] VITALS: BMI 42.2
[2024-07-01] MEDS: Lactated Ringers 1,000 ML 100 ML IVCONT (11:52)
--- NOTE | 2024-07-01 13:42 | MHC.SHP ---
Pre-Procedural Eval Section A - 24 Hr Update-Section A only Date of Service: 07/01/24 The patient is an INPATIENT: No The patient has been examined within 24 hours of the surgical procedure. The History & Physical has been completed within 30 days and I have reviewed it.: No Section B - Complete if H&P > 30 days Chief Complaint: Surveillance of colon polyps Details of Present Illness: Colon cancer screening, history of colon cancer Relevant Family History (Specify if Yes): Yes Relevant Social History: None Present Medications: see Short Stay Collaborative assessment Medical History: Significant History (Colon cancer Hernia History of depression Obstructive sleep apnea) History of Previous Operations: Relevant previous surgery/procedure and date(s) (History of gastric bypass, colon resection.) Allergies: Allergies Allergy/AdvReac Type Severity Reaction Status Date / Time No Known Allergies Allergy Verified 06/23/23 10:20 [No Known Allergies*] Review of Systems Sugical H&P ROS: Negative: Constitution, Cardiovascular, Respiratory and Gastrointestinal Exam Surgical H&P Exam: Normal: Heart, Normal: Lungs, Normal: Extremities and Normal: Abdomen Plan Diagnosis/Plan: Unchanged I have reviewed the history and physical and performed a pertinent physical examination on my patient. No changes have occurred unless specified. Time Spent With Patient Time: Total time managing care of this patient today ____ minutes.
--- NOTE | 2024-07-01 14:35 | P.OPN-COLO_ITS ---
Colonoscopy Operative Note Operative Note Date of Service: 07/01/24 Narrative: COLONOSCOPY TILL CECUM WITH SNARE POLYPECTOMY Pre-op diagnosis: Surveillance of colon polyps, history of colon cancer. Post-op diagnosis:? colon polyp, Diverticulosis, hemorrhoids Endoscopist:? Emily White MD Anesthesia:?MAC Consent: Indications for the procedure and potential complications of bleeding, perforation, reaction to medications and missed diagnosis were discussed with the patient and informed consent was obtained. Instrument: Olympus PCF H 190 L variable stiffness pediatric colonoscope Monitoring: Vital signs and clinical assessment, intermittent blood pressure monitoring, continuous EKG monitoring, Pulse oximetry and Carbon Dioxide monitoring were done throughout the procedure. Please see anesthesia flowsheet. Colon withdrawl time was 25 minutes. Procedure: The patient was placed in the left lateral decubitis position and pre-procedure medications were administered. After a digital rectal examination of the ano-rectum, the video colonoscope was inserted into the rectum and advanced through the colon to the cecum. The colonoscope was slowly withdrawn in a retrograde panoramic fashion and the colon mucosa was carefully examined including a retroflexed view of the rectum. Findings and interventions are described below. Procedure Difficulty: Colon was long and tortuous and there was spasm and some loop formation Findings: Terminal Ileum: Not evaluated Cecum: Normal Ascending Colon: Normal Transverse Colon: Normal Descending Colon: Normal Sigmoid Colon: Normal Rectum: A 7-8 mm sessile polyp - removed with a hot snare Ano-rectum: Moderate internal hemorrhoids Colon preparation: Good after copious irrigation. Ralph Bowel Preparation Scale Right colon; 2 Transverse colon: 2 Left colon; 2 (0 = Unprepared colon segment with mucosa not seen due to solid stool that cannot be cleared. 1 = Portion of mucosa of the colon segment seen, but other areas of the colon segment not well seen due to staining, residual stool and/or opaque liquid. 2 = Minor amount of residual staining, small fragments of stool and/or opaque liquid, but mucosa of colon segment seen well. 3 = Entire mucosa of colon segment seen well with no residual staining, small fragments of stool or opaque liquid) Impression and Post Procedure Diagnosis: Colonoscopy Findings: One small polyp was removed Moderate hemorrhoids on retroflexed exam. Plan: Pt has a FU appointment on 07/18/[address] White Repeat Colonoscopy in 5 years if polyps are adenomatous and due to a history of colon cancer (Adult colonoscope for future colonoscopies). Above findings were reviewed with the patient and relevant handouts were given and the discharge area.
[2024-07-01 14:42] VITALS: BP 107/70; PULSE 80; RESP 17; TEMP 36.8; O2SAT 97
[2024-07-01 14:53] VITALS: BP 99/64; PULSE 78; RESP 16; O2SAT 99
[2024-07-01 14:57] VITALS: BP 128/78; PULSE 78; RESP 16; TEMP 36.8; O2SAT 95
== END 2024-07-01 15:14 | disposition home or self-care (01) ==
PROVIDERS: PCP Family Medicine; Visit Provider Internal Medicine Gastroenterology
PROC: 0DJD8ZZ Inspection of Lower Intestinal Tract, Via Natural or Artificial Opening Endoscopic (ICD-10-PCS; CPT 45378; principal; 2024-07-01 12:50)
DX: Z12.11 Encounter for screening for malignant neoplasm of colon (principal); K62.1 Rectal polyp; K56.2 Volvulus; K57.30 Diverticulosis of large intestine without perforation or abscess without bleeding; K64.8 Other hemorrhoids; Z85.038 Personal history of other malignant neoplasm of large intestine; Z86.0101 Personal history of adenomatous and serrated colon polyps; R07.9 Chest pain, unspecified; E78.5 Hyperlipidemia, unspecified; G47.33 Obstructive sleep apnea (adult) (pediatric); Z79.899 Other long term (current) drug therapy
CPT/HCPCS: 45385; 88305; 93005; J2003; J2704

== ENCOUNTER → 2024-07-01 10:43 | Outpatient (BNV) | payer MEDICARE, MEDICAID, SELFPAY | PROVIDERS: PCP Family Medicine; Visit Provider Internal Medicine Gastroenterology | DX: Z12.11 Encounter for screening for malignant neoplasm of colon (principal); Z85.038 Personal history of other malignant neoplasm of large intestine; Z86.0100 Personal history of colon polyps, unspecified; K62.1 Rectal polyp | CPT/HCPCS: 45385 ==

== ENCOUNTER → 2024-07-01 14:51 | Outpatient (BNV) | payer MEDICARE, MEDICAID, SELFPAY | PROVIDERS: PCP Family Medicine; Visit Provider Internal Medicine Cardiovascular Disease | DX: R07.9 Chest pain, unspecified (principal) | CPT/HCPCS: 93010 ==

== ENCOUNTER 2024-07-30 10:23 | Outpatient (AMB) | payer MEDICARE, MEDICAID, SELFPAY ==
--- NOTE | 2024-07-30 10:26 | A.OFFVIS_ITS ---
Vital Signs 07/30/24 10:28 Height 6 ft Weight 320 lb BMI 43.4 BP 128/59 L Blood Pressure Location Lt brachial Position Sitting Pulse 70 Oxygen Delivery Method Room Air Oxygen Flow Rate 97 Intake Visit Reasons: Post op r/s 07/18/24 Intake Note: Patient follow up for Colon adenocarcinoma and Colonoscopy results. Patient deniesany GI issues for today visit. Panel Machine Tender Required: Yes Panel Machine Tender Name: Sharan Henry LM Accompanied by: Self / Same As Patient Allergies No Known Allergies [No Known Allergies*] Allergy (Verified 07/30/24 10:25) Medication List - Last Reconciled 07/30/24 by Emily White MD ascorbic acid (vitamin C) 25 mg PO DAILY bupropion HCl 150 mg PO DAILY cholecalciferol (vitamin D3) (Vitamin D3) 25 mcg PO DAILY multivitamin 1 tab PO DAILY phytonadione (vitamin K1) (vitamin K) 1 mg PO DAILY HPI HPI Post op r/s 07/18/24: Details: GI CLINIC VISIT FOR THIS 64-YEAR-OLD [place]AP[place]-SPEAKING MALE FOR FOLLOW-UP COLON CANCER, TO DISCUSS COLONOSCOPY RESULTS. TODAY'S VISIT: [facility] # [place] Colonoscopy findings were reviewed with the patient. Denies any problems after the procedure. Patient denies any GI symptoms. Denies recent change in bowel habits, constipation, diarrhea, black stools or rectal bleeding. Patient denies major cardiac or pulmonary problems He admits to having sleep apnea and uses a CPAP machine Denies problems with anesthesia in the past. Denies being on chronic anticoagulation. Positive hx of colon cancer in maternal GM at age 82 yrs and maternal uncle at age 52 yrs Mom had breast cancer PAST GI HISTORY BY REVIEW OF MEDICAL RECORDS: 05/13/20 PATIENT WAS SEEN BY DR. KABA: Presented with weight loss, abdominal pain, and severe anemia in July 2015, CT abdomen revealed, focal circumferential thickening involving proximal segment of midtransverse colon, spanning 6.5 cm in length within the upper abdomen. He underwent a staging CT chest on September 01, 2015, which was unremarkable. A preoperative CEA level was not elevated; 2.4 ng/mL on August 27, 2015. On September 02, 2015, patient underwent a laparoscopic transverse colon resection; pathology demonstrated moderately differentiated adenocarcinoma, measuring 6.5 cm in grea test dimension. No tumor perforation. Tumor invaded through the muscularis propria. All margins free of tumor, lymphovascular invasion not identified, perineural invasion not identified, no tumor deposits seen. A total of 12 lymph nodes were examined, 1 seen in the omental tissue and 11 with the colectomy specimen; all negative for tumor. There was a separate 0.5-cm tubular adenoma. Final stage pT3 pN0. Oncology consultation September 09, 2015, based on stage II colon cancer without high risk features. He was not recommended adjuvant chemotherapy because of extensive family history of malignancy both in theGenetic test for Culver syndrome did not reveal any clinically significant mutation. A variant of SABRINA gene c.973C>T was expressed, uncertain clinical significance. maternal as well as paternal family with question of FAP syndrome in the paternal side of the family. Assessment and plan: 1. 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 Final stage II; pT3N0. All margins negative of carcinoma, with no lymphovascular invasion or perineural invasion. All the 11 lymph nodes were negative. Genetic test for Culver syndrome did not reveal any clinically significant mutation. A variant of SABRINA gene c.973C>T was expressed, uncertain clinical significance. He is doing well and has no complaints today. Last CT abdomen/pelvis was performed in Jun 2018 showed no evidence of disease recurrence. Surveillance CT chest/abdomen and pelvis is being ordered now. He is also being referred to Gastroenterology for surveillance colonoscopY IMAGING STUDIES: 05/20/[address] SCAN SHOWED: 1. No evidence for residual or recurrent disease. 2. Subtle groundglass opacities in the lower lobes bilaterally are likely secondary to incomplete inspiration similar to the previous study. Mild dependent atelectasis is not significantly changed. 3. Persistent moderate size fat-containing umbilical hernia. Small fat-containing left superior periumbilical hernia was not seen previously. ENDOSCOPIC STUDIES: 07/01/24 COLONOSCOPY SHOWED: Colonoscopy Findings: One small polyp was removed Moderate hemorrhoids on retroflexed exam. Plan: Pt has a FU appointment on 07/18/[address] White Repeat Colonoscopy in 5 years if polyps are adenomatous and due to a history of colon cancer (Adult colonoscope for future colonoscopies). Above findings were reviewed with the patient and relevant handouts were given and the discharge area. BIOPSIES SHOWED: Rectum, polypectomy: Fragments of traditional serrated adenoma; negative for high-grade dysplasia or carcinoma Letter sent advising repeat colonoscopy in 5 years. Patient placed on the colonoscopy recall list. 07/30/20 COLONOSCOPY SHOWED: No polyps were detected Moderate diverticulosis seen in the sigmoid colon Moderate hemorrhoids on retroflexed exam. Prep was fair in some areas of the colon. Plan: Patient has an appointment on 08/13/20 in the GI Clinic with Emily White M.D.. Repeat Colonoscopy in 3 years due to fair prep. Above findings were reviewed with the patient and diverticulosis and diverticulosis diet handouts were given in the discharge area 01/2019 colonoscopy was performed by Dr. Cardona and was normal except old anastomosis was seen and this seemed to be in the distal right colon. [facility] Medical History (Updated 07/30/24 @ 11:08 by Emily White MD) Depression Elevated cholesterol History of depression Colon cancer Hernia Obstructive sleep apnea Surgical History Hx of endoscopy History of facial surgery History of carpal tunnel release of both wrists History of incisional hernia repair History of umbilical hernia repair Hx of colonoscopy History of colon resection Hx of tracheostomy History of gastric bypass Family History Paternal Grandmother Colon cancer Maternal Grandmother Colon cancer Mother Cancer Paternal Aunt Colon cancer Social History Household Members: Children Housing: House Are you a primary primary care sales representative to a significant other at home: No Do you presently have visiting nurse or other home services: No Alcohol intake: never Patient Tobacco Use Status: Never used Tobacco service: No Current occupational status: disabled Review of Systems Const Denies fever(s), Denies headache(s), Reports weight gain (25 lbs in 4 months), Denies weight loss and Reports other (sleep apnea) Eyes Denies eye discharge and Denies irritation ENT Reports Normal hearing present, Denies dysphagia, Denies dizziness and Denies headache(s) Card Denies chest pain, Denies leg edema and Denies dyspnea on exertion Resp Denies cough, Denies dyspnea on exertion and Denies wheezing GI Denies abdominal pain, Denies change in bowel habits, Denies dysphagia and Denies heartburn Denies dysuria Musc Denies back pain and Denies arthralgias Skin/Breast Denies pruritus, Denies rash and Denies jaundice Neuro Reports Normal hearing present, Denies Abnormal speech present, Denies dizziness, Denies headache(s) and Denies seizure-like activity Psych Denies anxiety, Denies depression and Denies panic attacks Endo Denies cold intolerance, Denies flushing and Denies heat intolerance Marcelo/Lymph Denies easy bleeding and Denies easy bruising Aller/Immun Denies wheezing Physical Exam Vital Signs: Last Vital Signs Pulse 70 07/30/24 10:28 BP 128/59 L 07/30/24 10:28 Oxygen Delivery Method Room Air 07/30/24 10:28 Oxygen Flow Rate 97 07/30/24 10:28 BMI result Body Mass Index 43.4 Const General: healthy appearing and no acute distress Nutritional Appearance: obese Orientation/consciousness: patient oriented x3 Limitations: language barrier HEENT Head: Yes normal to inspection Ears: hearing grossly normal bilaterally Eyes Sclerae: sclerae normal Pupils: Equal, round and reactive pupils present Neck Neck: Yes normal visual inspection Chest Chest palpation & inspection: normal inspection of the chest Resp Effort & Inspection: normal respiratory effort Auscultation: clear to auscultation bilaterally Cardio Palpation: normal PMI Rate: regular rate Rhythm: regular rhythm Heart sounds: S1 normal heart sound present, S2 normal heart sound present and no murmurs GI Inspection: Yes obesity Palpation (GI): Soft to palpation, nontender and No hepatosplenomegaly present Auscultation: normal bowel sounds Rectal Exam - Male: Yes deferred Skin General skin exam: no rashes or lesions noted Neuro General: patient oriented x3, gait normal and moves all extremities Cranial nerves: Yes Equal, round and reactive pupils present and Yes Normal hearing present Speech: No Abnormal speech present Psych Appearance: grossly normal Mental Status: mental status grossly normal Assessment & Plan Assessment & Plan (1) Colon adenocarcinoma: Comment: Patient had colon surgery in 2016 for adenocarcinoma of transverse colon. 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 Final stage II; pT3N0. All margins negative of carcinoma, with no lymphovascular invasion or perineural invasion. All the 11 lymph nodes were negative. Genetic test for Culver syndrome did not reveal any clinically significant mutation. A variant of SABRINA gene c.973C>T was expressed, uncertain clinical significance. 05/20/20 abdomen/pelvic CT scan showed no evidence of disease recurrence. 07/30/20 colonoscopy showed diverticulosis and hemorrhoids and no polyps were detected. Patient is advised repeat colonoscopy in 3 years because of fair prep. 06/2024 One small serrated adenoma removed during colonoscopy Repeat colonoscopy advised in 5 years GI follow-up in 1 year. Coding Level of Care Code Est Pt Level 3 (09463) Diagnoses Colon adenocarcinoma C18.9 Diverticulosis of colon K57.30 Time Spent (min) 18
[2024-07-30 10:28] VITALS: BP 128/59; PULSE 70; BMI 43.4
--- OUTSIDE RECORDS SUMMARY | 2024-07-30 12:24 | XMS_ITS | Clinical Summary ---
Author Organization [facility] Address [address] [place] [address] Care Team Providers Care Regional Planner Name Role Phone Solis DempseyNadia ASHRAF Primary Care Provider [phone] Allergies No known active allergies Medications atorvastatin (LIPITOR) 10 mg tabletIndications: Mixed hyperlipidemia TOME JANNIE TABLETA TODOS LOS RICHTER 90 tablet 3 08/07/19 22 Active cholecalciferol (VITAMIN D3) 1,250 mcg (50,000 unit) capsule Take 1 capsule (50,000 Units total) by mouth once a week. 12 capsule 11/23/19 22 Active Aqua-K Concentrate 200 mcg-2 mg /0.2 mL dropsIndications:V itamin K deficiency TOME DOS TABLETAS POR VIA ORAL TODOS [place] RICHTER 60 mL 12/21/19 22 Active buPROPion SR (WELLBUTRIN SR) 150 mg tabletIndications: Morbid (severe) obesity due to excess calories (HCC) Jannie tableta 2 veces al tere. 1 tablet two times daily. 180 tablet 3 07/26/19 25 Active cholecalciferol (VITAMIN D3) 2,000 unit capsuleIndications :Vitamin D deficiency Take 1 capsule (2,000 Units total) by mouth once a day. 07/26/19 25 Active polyethylene glycol 3350 (Miralax) powderIndications: Constipation, unspecified constipation type Take 17 g by mouth daily. Mix powder in 4 to 8 oz of water, juice, coffee, or tea. Take 17 g daily until first bowel movement, then titrate down to achieve one soft bowel movement daily 510 g 1 02/25/20 22 025 Discontinued ferrous sulfate 325 mg (65 mg iron) tabletIndications: Low ferritin Take 1 tablet (325 mg total) by mouth daily with breakfast. 30 tablet 2 02/25/20 22 025 Discontinued Active Problems Problem Noted Date Diagnosed Date Vitamin D deficiency 07/25/2024 Assessment & Plan (07/25/2024 7:44 PM EST): Patient requiring refill of his vitamin D Influenza 07/25/2024 Assessment & Plan (07/25/2024 7:44 PM EST): Patient requiring influenza vaccination today - Influenza vaccine administered Healthcare maintenance 07/25/2024 Assessment & Plan (07/25/2024 8:00 PM EST): Patient is presenting in office after he completed that outside of the country. He was helping his sister recover from vaginal/rectal cancer for 8 months in [place] and during this time he has been unable to manage his medications and take care of himself appropriately. He is here for some medication refills but we did attempt to address some care gaps today as well as discussed that he should return for 40- minute Medicare wellness so we can do more routine labs and follow-up on any other concerns he may have - Social determinants of health completed - Substance use risk screening - Influenza vaccine administered - Follow-up in 3 to 4 weeks for Medicare annual wellness Medicare annual wellness visit, initial 04/29/20 23 Assessment & Plan (04/29/2023 1:47 AM EST): Healthcare maintenance. -Cervical cancer screening: N/A -Breast cancer screening: N/A -Colorectal cancer screening: States he had outside colonoscopy performed, unsure what year. No records have been scanned in. -Lung cancer screening: N/A -DEXA scan: n/a -Dental: Currently seeking a dentist that takes his insurance -Immunizations : Needs RSV at [place] -Labs: Life time HIV screen needed. -STD/HIV [...] not cover MiraLAX. 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 -Iron twice a week prescribed Deficiency of [...] speaking with attending Dr. Bryant we found [facility] which gives 100 mcg vitamin K for daily maintenance. Jaki called the patient and instructed him to buy the vitamin K online via [facility] website. We will follow-up and retest his [...] hernia scheduled for surgery on 08/31/2018 at [facility]. Prediabetes 04/09/2018 ED (erectile dysfunction) 12/06/2017 Assessment & Plan (12/06/2017 8:54 AM EDT): Patient reports 2-3 episodes of trouble with erection during [place]. Reports morning erections and denies any new [...] Overview (09/18/2017): The 10-year ASCVD risk score (Olive QIAN Jr, et al., 2013) is: 5.3% Values [...] was initially started by his psychiatrist in [place] years ago. PHQ-2 was negative in office [...] 303 lb, BMI 42. Assessment & Plan (07/25/2024 7:44 PM EST): Patient has BMI of 47 has history of gastric bypass approximately 20 years ago. He was recently in [place] helping his sister for almost 1 year he was taking bupropion for mental health reasons and weight loss which we will reinitiate today - Continue bupropion 150 mg daily - Follow-up 1 month for annual physical Assessment & Plan (08/02/2023 9:48 AM EDT): [...] (06/02/2023 11:06 PM EST): Gastric bypass in 2006. -Discussed plate method -Plan to aim for [...] week. He is interested in seeing a emergency medical technician and attending our weight loss program with Dr. Smith. Lipid panel within normal limits, CBC and BMP within normal limits on September 2017. -Discussed diet and exercise. Discussed the concept of calorie deficit in order to lose weight. - Saw Man referral and referral to Dr. Smith's weight [...] Encounters Date Type Department Care Team Description 07/25/2024 4:30 PM EST Follow-Up [address] [phone] Vice President Consulting Services: Solis An DO ShammasJaki Influenza (Primary Dx); Morbid obesity; Vitamin D deficiency; Vitamin K deficiency; Healthcare maintenance 05/29/[address] [phone] Vice President Consulting Services: Solis An DO Morbid obesity from Last 3 Months Immunizations Immunization Administration Dates Next Due Covid-19, Pfizer, mRNA, Citrus valent, PF, 10 Mcg/0.2 mL dose, [place]-sucrose (for ages 5-11 years old) 04/25/2023 Covid-19, Pfizer, mRNA, Citrus valent, PF, 30 mcg/0.3 mL dose, [place]on-sucrose (COMIRNATY)(for ages 12 and older) 04/25/2023 INFLUENZA, SPLIT VIRUS, TRIVALENT, PF 06/22/2016 Influenza trivalent, PF MDCK (FLUCELVAX) vaccine 0.5 mL IM (for age 6 mo and older) 07/25/2024 Influenza, Injectable, Quadr ivalent, Preservative Free 04/25/2023,05/03/2019,01/10/2017 Influenza, Trivalent, MDV, Injectable 01/22/2014 ,01/26/2013 Pneumococcal conjugate PCV20 ,polysaccharide [id number] conjugate, adjuvant, PF (Prevnar 20) 07/31/2023 Tetanus [...] drink = 0.6 oz pur e alcohol) [facility] Utilities Answer Date Recorded In the past 12 months has e [employer], gas, oil, or water company threatened to shut off services in your home? No 07/25/2024 Hunger Vital Sign Answer Date Recorded Within the past 12 months, y ou worried that your food would run out before you got the money to buy more. Never true 07/26/19 25 Within the past 12 months, t he food you bought just didn't last and you didn't have money to get more. Never true 07/25/2024 Transportation Answer Date Recorded In the past 12 months, has l ack of reliable transportation kept you from medical appointments, meetings, work or from getting things needed for daily living? No 07/25/2024 Housing Answer Date Recorded Housing Risk Low 2 07/25/2024 Housing Risk Medium Not on file 07/25/2024 Housing Risk High Not on file 07/25/2024 What is your living situation today? LSSTEADY 07/25/2024 Sex and Gender Information Value Date Recorded Sex Assigned at Male 03/30/2023 11:12 AM EST Legal Sex Male 1:35 AM EDT Gender Identity Not on file Sexual Orientation Not on file Last Filed Vital Signs Vital Sign Reading Time Taken Comments Blood Pressure 110/64 07/25/2024 4:09 PM EST Pulse 64 07/25/2024 4:09 PM EST Temperature 36.5 ??C (97.7 ??F) 07/25/2024 4:09 PM ES T Respiratory Rate 16 01/29/2018 1:20 PM EDT Oxygen Saturation 96% 07/25/2024 4:09 PM EST Inhaled Oxygen Concentration - - Weight 144.6 kg (318 lb 11.2 oz) 07/25/2024 4:09 PM EST Height 175.3 cm (5' 9 ) 07/25/2024 4:09 PM EST Body Mass Index 47.06 07/25/2024 4:09 PM EST Plan of Treatment Upcoming Encounters Date Type Department Care Team (Late st Contact Info) Description 08/29/2024 3:10 PM EDT Office Visit [address] [phone] Vice President Consulting Services: Solis An, [address] [place] [address] [phone] Health Maintenance Due Date Last Done Comments HIV Screening 1960 RSV Vaccine (60+ years old and patients) (1 - Risk 60-74 years 1-dose series) 2021 Medicare AWV 04/25/2024 04/25/2023 Depression Evaluation 05/22/2024 Social Drivers of Health Annual Screening 07/25/2025 07/25/2024 DTaP,Tdap,and Td Vaccines (2 - Td or Tdap) 10/22/2031 10/21/2021 Tobacco Screening 05/22/2042 07/31/2023 Hepatitis C Screening Completed 10/02/2020 Statin Therapy Completed 08/06/2021 Zoster Vaccines Completed 01/24/2022, 11/01/2021 COVID-19 Vaccine Discontinued 04/25/2023, 09/2022, 04/25/2023, Additional history exists Pneumococcal Vaccine: 50+ Years Completed 07/31/2023 Alcohol/Substance Use Screening Completed 07/25/2024 Influenza Vaccine Completed 07/25/2024, , 05/03/2019, Additional history exists Hepatitis B Vaccines Aged Out No long er eligible based on patient's age to complete this topic Procedures * Due to [facility] law, this organization might not be sharing negative HIV tests. Procedure Name Priority Date/Time Associated Diagnosis Comments HEPATITIS C ANTIBODY W/REFLEX TO HCV RNA, QUANTITATIVE PCR Routine 10/02/2020 9:31 AM EDT Encounter for hepatitis C screening test for low risk patient from Last 3 Months or Most Recently Relevant to Health Maintenance Results * Due to [place] law, this organization might not be sharing negative HIV tests. * Hepatitis C Antibody w/Reflex to HCV RNA, Quantitative PCR (10/02/2020 9:31 AM EDT) Hepatitis C Antibody Interpretation Nonreactive Nonreactive [facility] [employer] 11:14 AM EDT [facility] Blood Structure of peripheral vein / Unknown Venipuncture / Unknown 10/02/2020 9:31 AM EDT 10/02/2020 9:31 AM EDT us Shasha Smith MD LAB BLOOD ORDERABLES Final Result Performing Organization Address City/State/[facility] Co de Phone Number [facility] [address] [place] [phone], from Last 3 Months or Most Recently Relevant to Health Maintenance Insurance MEDICARE [facility] MEDICARE 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
--- OUTSIDE RECORDS SUMMARY | 2024-07-30 12:24 | XMS_ITS | Referral Summary ---
Author Organization [facility] Address [address] [place] [address] Care Team Providers Care Checkering Machine Adjuster Name Role Phone Solis Dempsey DO Primary Care Provider [phone] Encounters Date Type Department Care Team Description 07/25/2024 4:30 PM EST Follow-Up [address] [id number] Hoop Bender Tank: Solis An, Jaki Gambino Influenza (Primary Dx); Morbid obesity; Vitamin D deficiency; Vitamin K deficiency; Healthcare maintenance 05/29/[address] [id number] Hoop Bender Tank: Solis An, Morbid obesity from Last 3 Months Allergies No known active allergies Medications atorvastatin [...] from vaginal/rectal cancer for 8 months in [place] and during this time he has been [...] his insurance -Immunizations : Needs RSV at [facility] -Labs: Life time HIV screen needed. [...] not cover MiraLAX. Patient will have to potato picker MiraLAX [id number]. -Iron twice a week prescribed Deficiency of [...] speaking with attending Dr. Bryant we found [facility] which gives 100 mcg vitamin K for daily maintenance. Jaki called the patient and instructed him to buy the vitamin K online via [facility] website. We will follow-up and retest his [...] hernia scheduled for surgery on 08/31/2018 at [facility]. Prediabetes 04/09/2018 ED (erectile dysfunction) 12/06/2017 Assessment & Plan (12/06/2017 8:54 AM EDT): Patient reports 2-3 episodes of trouble with erection during [place]. Reports morning erections and denies any new [...] was initially started by his psychiatrist in [place] years ago. PHQ-2 was negative in office [...] 20 years ago. He was recently in [place] helping his sister for almost 1 year [...] week. He is interested in seeing a hamper maker machine and attending our weight loss program with Dr. Smith. Lipid panel within normal limits, CBC and BMP within normal limits on September 2017. -Discussed diet and exercise. Discussed the concept of calorie deficit in order to lose weight. - Frame Sample And Pattern Supervisor referral and referral to Dr. Smith's weight [...] pain 07/15/2011 10/17/2017 Syncope 07/15/2011 10/17/2017 Immunizations Immunization Administration Dates Next Due Covid-19, Pfizer, mRNA, Haines valent, PF, 10 Mcg/0.2 mL dose, [place]on-sucrose (for ages 5-11 years old) 04/25/2023 Covid-19, Pfizer, mRNA, Haines valent, PF, 30 mcg/0.3 mL dose, trenton-sucrose (COMIRNATY)(for ages 12 and older) 04/25/2023 INFLUENZA, SPLIT VIRUS, TRIVALENT, PF 06/22/2016 Influenza trivalent, PF MDCK (FLUCELVAX) vaccine 0.5 mL IM (for age 6 mo and older) 07/25/2024 Influenza, Injectable, Quadr ivalent, Preservative Free 04/25/2023,05/03/2019,01/10/2017 Influenza, Trivalent, MDV, Injectable 01/22/2014 ,01/26/2013 Pneumococcal conjugate PCV20 ,polysaccharide [id number] conjugate, adjuvant, PF (Prevnar 20) 07/31/2023 Tetanus Toxoid, Reduced Diph theria Toxoid, and Acellular Pertussis Vaccine, Adsorbed 10/21/2021 Zoster Vaccine Recombinant 01/24/2022,11/01/2021 Social History Tobacco Use Types Packs/Day Years Used Date Smoking Tobacco: Never Smokeless Tobacco: Never Comments:: Alcohol Use Standard Drinks/Week Comments No 0 (1 standard drink = 0.6 oz pur e alcohol) [facility] Utilities Answer Date Recorded In the past 12 months has th e electric, gas, oil, or water company threatened to [...] Description 08/29/2024 3:10 PM EDT Office Visit [facility] [address] [place] [address] Hoop Bender Tank: Solis An, DO [address] [place] [id number] Procedures * Due to [place] [employer] law, this organization might not be sharing negative HIV tests. Procedure Name Priority Date/Time Associated Diagnosis Comments HEPATITIS C ANTIBODY W/REFLEX TO HCV RNA, QUANTITATIVE PCR Routine 10/02/2020 9:31 AM EDT Encounter for hepatitis C screening test for low risk patient from Last 3 Months or Most Recently Relevant to Health Maintenance Results * Due to [facility] law, this organization might not be sharing negative HIV tests. * Hepatitis C Antibody w/Reflex to HCV RNA, Quantitative PCR (10/02/2020 9:31 AM EDT) Hepatitis C Antibody Interpretation Nonreactive Nonreactive [facility] 11:14 AM EDT [facility] Blood Structure of peripheral vein / Unknown Venipuncture / Unknown 10/02/2020 9:31 AM EDT 10/02/2020 9:31 AM EDT us Shasha Smith MD LAB BLOOD ORDERABLES Final Result [facility] [address], [place] [address] from Last 3 Months or Most Recently Relevant to Health Maintenance Insurance MEDICARE [facility] MEDICARE [facility] Advance Directives Documents on File Type Date Recorded Patient Quality Assurance Expl anation Health Care Proxy 02/25/2022 1:20 PM 02-24 Care Teams Checkering Machine Adjuster Relationship Specialty Start Date End Date Solis Dempsey DO [address] [place], [place] [address] [address] PCP - General 11/20/23
--- OUTSIDE RECORDS SUMMARY | 2024-07-30 12:24 | XMS_ITS | Clinical Summary ---
Author Organization [facility] Address [address] [place] [address] Care Team Providers Care Order Selector Name Role Phone No, Pcp MULTI OPERATION FORMING MACHINE SETTER Primary Care Provider Unavailabl e Social History [...] Adults 18 yrs or above (or HM Modifier)([facility]) 1979 Hepatitis C Virus Infection in Adolescents and Adults: Screening (or Modifier) ([facility]) 1979 SDTX Screening Reminder: Rama santillan for all adults ([facility]) 1979 Tobacco Smoking Cessation: i n Adults excluding Women: Behavioral and Pharmacotherapy Interventions ([facility]) 1979 DTaP/Tdap/Td Vaccines ([facility]) (1 - Tdap) 02/06/1980 Lipid Screening: Every 5 yrs for Men aged 35+ (or HM Modifier) ([facility]) 1997 Colorectal Cancer Screening 45 -75 Yrs (or HM Modifier) 2006 Colorectal Cancer: FLEXIBLE SIGMOIDOSCOPY Screening every 5 yrs 2006 Colorectal Cancer: Fecal Immunochemical Test (FIT) Annually [facility] 2006 Colorectal Cancer: High-sens itivity gFOBT Screening Annually [facility] 2006 Colorectal Cancer: Stool Col oguard Screening every 3 yrs 2006 Colorectal Cancer:CT Colonog pérez Screening every 5 yrs 2006 Zoster/Shingles Vaccine Seri es Screening: Adults aged 18+ yrs (or HM Modifiers)([facility]) (1 of 2) 2011 Flu Vaccination: Yearly for ages 18mos through 64 years (or Modifier)([facility]) 12/21/2023 COVID-19 Vaccine Screening: Initial Series and Booster Status ([facility]) ( - 2023- season) 2024 RSV Vaccines (1 - 1-dose 75+ series) 02/06/2036 Pneumococcal Vaccination Scr eening: Pts 0-19 & 19-64 yrs of age ([facility]) Aged Out No longer eligible based on patient's age to complete this topic Medical Devices Not on file Insurance MEDICARE Care Teams Order Selector Relationship Specialty Start Date End Date No, Pcp, MULTI OPERATION FORMING MACHINE SETTER N/A Do not use PCP - General Family Medicine 01/14/20
--- OUTSIDE RECORDS SUMMARY | 2024-07-30 12:24 | XMS_ITS | Encounter Summary ---
Author Organization [facility] Address [address] [place] [address] Care Team Providers Care Sewing Supervisor Name Role Phone Solis Dempsey DO Primary Care Provider [phone] Reason for Visit * Reason Comments Med Refill Encounter Details Date Type Department Care Team (Late st Contact Info) Description 07/25/2024 4:30 PM EST Follow-Up [facility] [address] [place] [id number] Senior Process Engineer: Solis An, [address] [place] [id number] Jaki Arriaza [address] [place] [address] [place] [address] Influenza (Primary Dx); Morbid obesity; Vitamin D deficiency; Vitamin K deficiency; Healthcare maintenance Social History Tobacco Use Types Packs/Day Years Used Date Smoking Tobacco: Never Smokeless Tobacco: Never Comments:: Alcohol Use Standard Drinks/Week Comments No 0 (1 standard drink = 0.6 oz pur e alcohol) [facility] Utilities Answer Date Recorded In the past [...] on file Sexual Orientation Not on file documented as of this encounter Last Filed Vital Signs Vital Sign Reading Time Taken Comments Blood Pressure 110/64 07/25/2024 4:09 PM EST Pulse 64 07/25/2024 4:09 PM EST Temperature 36.5 ??C (97.7 ??F) 07/25/2024 4:09 PM ES T Respiratory Rate - - Oxygen Saturation 96% 07/25/2024 4:09 PM EST Inhaled Oxygen Concentration - - Weight 144.6 kg (318 lb 11.2 oz) 07/25/2024 4:09 PM EST Height 175.3 cm (5' 9 ) 07/25/2024 4:09 PM EST Body Mass Index 47.06 07/25/2024 4:09 PM EST documented in this encounter Progress Notes * Vaughn Gibbons DO - 07/28/2024 7:38 PM EDT I have reviewed the patient's medical history, the findings on physical exam, and the diagnosis andtreatment plan. Case was discussed with the resident/fellow at the time of the patient visit and I personally was integrally involved in the medical decision making for the patient's treatment, ongoing care and follow-up as documented in the resident/fellow's note. * Solis Dempsey DO - 07/25/2024 4:14 PM EST [facility]: Office Visit Name: Mark Cote : Preferred Name: Mark : 1960 Visit Date: 07/25/2024 PCP: Solis Dempsey DO ASSESSMENT & PLAN Patient ID: Mark is a 64 y.o. male Assessment & Plan Influenza Patient requiring influenza vaccination today - Influenza vaccine administered Morbid obesity Patient has BMI of 47 has history of gastric bypass approximately 20 years ago. He was recently in [place] helping his sister for almost 1 year he was taking bupropion for mental health reasons and weight loss which we will reinitiate today - Continue bupropion 150 mg daily - Follow-up 1 month for annual physical Vitamin D deficiency Patient requiring refill of his vitamin D Healthcare maintenance Patient is presenting in office after he completed that outside of the country. He was helping his sister recover from vaginal/rectal cancer for 8 months in [place] and during this time he has been unable to manage his medications and take care of himself appropriately. He is here for some medication refills but we did attempt to address some care gaps today as well as discussed that he should return for 40-minute Medicare wellness so we can do more routine labs and follow-up on any other concerns he may have - Social determinants of health completed - Substance use risk screening - Influenza vaccine administered - Follow-up in 3 to 4 weeks for Medicare annual wellness Diagnoses and all orders for this visit: Influenza - Influenza trivalent, PF MDCK (FLUCELVAX) vaccine 0.5 mL IM (for age 6 mo and older) (CUH045) Morbid obesity - buPROPion SR (WELLBUTRIN SR) 150 mg tablet; Jannie tableta 2 veces al tere. 1 tablet two times daily. Vitamin D deficiency - cholecalciferol (VITAMIN D3) 2,000 unit capsule; Take 1 capsule (2,000 Units total) by mouth oncea day. Vitamin K deficiency Healthcare maintenance FOLLOW-UP: No follow-ups on file. Solis Dempsey DO PGY-2 07/25/2024 8:00 PM SUBJECTIVE Subjective You is a 64-year-old who has not been able to come to his primary care for approximately 1 year, heis mostly here today for refill of a few of his medications however we did discuss that he has somecare gaps that need addressing and he has not had a physical in a while so he plans to return within 1 month with me for a Medicare wellness to ensure that we are going over everything No Known Allergies Current Outpatient Medications: Aqua-K Concentrate 200 mcg-2 mg /0.2 mL drops, TOME DOS TABLETAS POR VIA ORAL TODOS [place] RICHTER, Disp:60 mL, Rfl: 0 atorvastatin (LIPITOR) 10 mg tablet, TOME JANNIE TABLETA TODOS [place] RICHTER, Disp: 90 tablet, Rfl: 3 buPROPion SR (WELLBUTRIN SR) 150 mg tablet, Jannie tableta 2 veces al tere. 1 tablet two times daily., Disp: 180 tablet, Rfl: 3 cholecalciferol (VITAMIN D3) 1,250 mcg (50,000 unit) capsule, Take 1 capsule (50,000 Units total) by mouth once a week., Disp: 12 capsule, Rfl: 0 cholecalciferol (VITAMIN D3) 2,000 unit capsule, Take 1 capsule (2,000 Units total) by mouth once aday., Disp: , Rfl: Reviewed family history, past medical and surgical history, social history Patient Active Problem List Diagnosis Carpal tunnel syndrome, unspecified laterality Morbid obesity Family history of heart disease Mixed hyperlipidemia Obstructive sleep apnea Depression, unspecified depression type Peripheral axonal neuropathy ED (erectile dysfunction) Prediabetes Umbilical hernia Malignant neoplasm of transverse colon (HCC) History of [place]-en-Y gastric bypass Low serum vitamin D Folliculitis barbae Deficiency of multiple nutrient elements Intestinal malabsorption Constipation Vitamin K deficiency Low ferritin Medicare annual wellness visit, initial Vitamin D deficiency Influenza Healthcare maintenance Review of Systems All other systems reviewed and are negative. OBJECTIVE Objective Vitals: 07/25/24 1609 BP: 110/64 BP Location: Left arm Patient Position: Sitting Pulse: 64 Temp: 36.5 ??C (97.7 ??F) TempSrc: Temporal SpO2: 96% Weight: (!) 144.6 kg (318 lb 11.2 oz) Height: 1.753 m (5' 9 ) Body mass index is 47.06 kg/m??. Wt Readings from Last 3 Encounters: 07/25/24 (!) 144.6 kg (318 lb 11.2 oz) 07/31/23 135 kg (297 lb 11.2 oz) 06/01/23 134 kg (295 lb 6.4 oz) Physical Exam Constitutional: General: He is not in acute distress. Appearance: He is normal weight. He is not toxic-appearing. HENT: Head: Normocephalic and atraumatic. Eyes: Extraocular Movements: Extraocular movements intact. Conjunctiva/sclera: Conjunctivae normal. Pupils: Pupils are equal, round, and reactive to light. Pulmonary: Effort: Pulmonary effort is normal. Musculoskeletal: General: Normal range of motion. Cervical back: Normal range of motion. Neurological: General: No focal deficit present. Mental Status: He is alert and oriented to person, place, and time. Mental status is at baseline. Psychiatric: Mood and Affect: Mood normal. Behavior: Behavior normal. Thought Content: Thought content normal. Judgment: Judgment normal. This dictation was done with the use of [employer] voice recognition software and may contain some errors. If you have any questions about this dictation please call the office. documented in this encounter Miscellaneous Notes * Assessment & Plan Note - Solis Dempsey DO - 07/25/2024 8:00 PM ESTAssociated Problem(s): Healthcare maintenance Patient is presenting in office after he completed that outside of the country. He was helping his sister recover from vaginal/rectal cancer for 8 months in [place] and during this time he has been unable to manage his medications and take care of himself appropriately. He is here for some medication refills but we did attempt to address some care gaps today as well as discussed that he should return for 40-minute Medicare wellness so we can do more routine labs and follow-up on any other concerns he may have - Social determinants of health completed - Substance use risk screening - Influenza vaccine administered - Follow-up in 3 to 4 weeks for Medicare annual wellness * Assessment & Plan Note - Solis Dempsey DO - 07/25/2024 7:44 PM ESTAssociated Problem(s): Vitamin D deficiency Patient requiring refill of his vitamin D * Assessment & Plan Note - Solis Dempsey DO - 07/25/2024 7:44 PM ESTAssociated Problem(s): Morbid obesity Patient has BMI of 47 has history of gastric bypass approximately 20 years ago. He was recently in [place] helping his sister for almost 1 year he was taking bupropion for mental health reasons and weight loss which we will reinitiate today - Continue bupropion 150 mg daily - Follow-up 1 month for annual physical * Assessment & Plan Note - Solis Dempsey DO - 07/25/2024 7:44 PM ESTAssociated Problem(s): Influenza Patient requiring influenza vaccination today - Influenza vaccine administered documented in this encounter Plan of Treatment Upcoming Encounters Date Type Department Care Team (Late st Contact Info) Description 08/29/2024 3:10 PM EDT Office Visit [address] [phone] Senior Process Engineer: Solis An DO [address] [place] [id number] documented as of this encounter Visit Diagnoses Diagnosis Influenza- Primary Influenza with other respiratory manifestations Morbid obesity Vitamin D deficiency Vitamin K deficiency Deficiency of vitamin K Healthcare maintenance documented in this encounter Care Teams Sewing Supervisor Relationship Specialty Start Date End Date Solis Dempsey DO [address] [place] [id number] PCP - General 11/20/23 documented as of this encounter
== END 2024-07-30 11:03 | disposition home or self-care (01) ==
LOC: HO.HGI 10:24
PROVIDERS: PCP Family Medicine; Visit Provider Internal Medicine Gastroenterology
DX: C18.9 Malignant neoplasm of colon, unspecified (principal); K57.30 Diverticulosis of large intestine without perforation or abscess without bleeding
CPT/HCPCS: 99213

== ENCOUNTER → 2024-07-30 10:23 | Outpatient (BNVA) | payer MEDICARE, MEDICAID, SELFPAY | PROVIDERS: PCP Family Medicine; Visit Provider Internal Medicine Gastroenterology | DX: K57.30 Diverticulosis of large intestine without perforation or abscess without bleeding (principal); C18.9 Malignant neoplasm of colon, unspecified | CPT/HCPCS: 99212 ==